=== PATIENT | male | born 1980 | race Two or more races ===

== ENCOUNTER 2017-08-04 12:57 | Emergency (ER) | payer MEDICAID, OTHER ==
[~2017-08-04] VITALS: Ht 170.2 cm; Wt 70.3 kg
[2017-08-04] MEDS ORDERED: HYDR-500 PO (13:16)
[2017-08-04] MEDS ORDERED: OLAN20TA3 PO (13:16)
[2017-08-04] MEDS ORDERED: ONDANSETRON ODT 4 MG TAB.RAPDIS SL ONE (13:30)
[2017-08-04] MEDS ORDERED: ONDANSETRON ODT 4 MG TAB.RAPDIS ONE (13:44)
[2017-08-04 13:51] LABS: POTASSIUM 3.7 mmol/L (3.5-5.1)
[2017-08-04 13:52] LABS: CREATININE 1.1 mg/dL (0.6-1.3)
--- NOTE | 2017-08-04 13:55 | NUR ---
Patient is not found in the ER room- eloped? MD notified.
[2017-08-04 13:57] LABS: BILIRUBIN,DIRECT 0.1 mg/dL (0.0-0.2); BILIRUBIN,TOTAL 0.2 mg/dL (0.2-1.0); TOTAL PROTEIN, SERUM 7.3 g/dL (6.4-8.2)
[2017-08-04 14:02] LABS: BASOPHILS % (AUTO) 0.8 % (0.0-2.0); EOSINOPHILS # (AUTO) 0.1 K/uL (0.0-0.7); EOSINOPHILS % (AUTO) 1.6 % (0.0-7.0); HEMOGLOBIN 15.7 g/dL (12.5-16.3); LYMPHOCYTES # (AUTO) 1.4 K/uL (20.0-40.0); LYMPHOCYTES % (AUTO) 25.9 % (20.5-51.5); MEAN CORPUSCULAR HEMOGLOBIN 30.5 uug (23.8-33.4); MEAN CORPUSCULAR HGB CONC 34 g/dL (32.5-36.3); MEAN CORPUSCULAR VOLUME 89.1 fL (73.0-96.2); MONOCYTES # (AUTO) 0.5 K/uL (2.0-10.0); MONOCYTES % (AUTO) 9.8 % (0.0-11.0); NEUTROPHILS # (AUTO) 3.2 K/uL (1.8-8.9); NEUTROPHILS % (AUTO) 61.9 % (38.5-71.5); PLATELET COUNT (AUTO) 277 K/uL (152-348); RED BLOOD CELL COUNT(AUTO) 5.16 MIL/uL (4.06-5.63); WHITE BLOOD COUNT (AUTO) 5.2 K/uL (3.6-10.2)
--- NOTE | 2017-08-04 14:02 | NUR ---
Patient is now back in ER. He said that he smoked outside. Patient also said, "Can I have something to eat?" MD okayed for patient to have something as po challenge.
--- NOTE | 2017-08-04 14:04 | NUR ---
[place] and juice provided , pending urine & blood tests results at this time.
--- NOTE | 2017-08-04 14:18 | NUR ---
PT WAS D/C TO [facility] ER ND RE-EVALUATION. D/C INSTRUCTIONS GIVEN TO THE PT.
[2017-08-04 14:19] VITALS: BP 132/75
[2017-08-04 14:27] LABS: LYMPHOCYTES % (MANUAL) 28 % (20-40); MONOCYTES % (MANUAL) 8 % (2-10); NEUTROPHILS % (MANUAL) 64 % (42-75)
== END 2017-08-04 14:20 | disposition home or self-care (01) ==
LOC: ER 13:06
DX: A08.4 Viral intestinal infection, unspecified (principal); F17.200 Nicotine dependence, unspecified, uncomplicated
CPT/HCPCS: 74020; 80048; 80076; 83690; 85025; 99285; A4663; Q0162; 36415